=== PATIENT | female | born 2005 | race African-American/Black ===

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

== ENCOUNTER 2023-04-09 08:18 | Emergency (ER) | payer OTHER | END 2023-04-09 09:38 | disposition home or self-care (01) | LOC: CSHERS 08:18 | DX: H66.91 Otitis media, unspecified, right ear (principal); G40.909 Epilepsy, unspecified, not intractable, without status epilepticus; Z79.899 Other long term (current) drug therapy | CPT/HCPCS: 99283 ==

== ENCOUNTER 2024-11-03 09:59 | Emergency (ER) | payer OTHER ==
[2024-11-03 11:53] LABS: #Basophils Less than 0.03 10x3/uL (0.0-0.2); #Eosinophils Less than 0.03 10x3/uL (0.0-0.5); #Monocytes 0.57 10x3/uL (0.0-1.1); #Neutrophils 1.61 10x3/uL (1.5-8.4); %Basophils 0.5 % (0.0-2.0); %Eosinophils 0.3 % (0.0-6.0); %Lymphocytes 39.5 % (18.0-47.0); %Monocytes 15.5 % (0.0-10.0); %Neutrophils 43.9 % (40.0-75.0); Hematocrit 40.7 % (34.9-44.5); Hemoglobin 13.1 g/dL (12.0-15.5); Mean Corpuscular Hemoglobin 27.6 pg (27.0-33.0); Mean Corpuscular Volume 85.7 fL (81.6-98.3); Platelet Count 227 10x3/uL (150-450); Red Blood Cell (RBC) Count 4.75 10x6/uL (3.90-5.03); White Blood Cell (WBC) Count 3.67 10x3/uL (3.5-10.5)
[2024-11-03 12:08] LABS: ALT (SGPT) 18 U/L (Less than 34); AST (SGOT) 25 U/L (11-34); Albumin 4.6 g/dL (3.1-4.5); Alkaline Phosphatase 55 U/L (40-110); Anion Gap 13 mmol/L (10-20); BUN (Urea Nitrogen) 15 mg/dL (7.0-18.7); Bilirubin, Total 0.4 mg/dL (0.3-1.2); Calc. Creatinine Clearance 0 mL/min (70-130); Calcium 10.1 mg/dL (7.8-10.44); Carbon Dioxide 23 mmol/L (22-29); Chloride 105 mmol/L (98-107); Globulin 3.2 g/dL (2.4-3.5); Glucose 83 mg/dL (70-105); Lipase 13 U/L (8-78); Potassium 3.9 mmol/L (3.5-5.1); Sodium 137 mmol/L (136-145)
[2024-11-03 12:12] LABS: Troponin I Less than 0.010 ng/mL (< 0.028)
== END 2024-11-03 13:12 | disposition home or self-care (01) ==
LOC: CSHERS 09:59
DX: R10.84 Generalized abdominal pain (principal); K59.00 Constipation, unspecified; R07.9 Chest pain, unspecified
CPT/HCPCS: 71045; 74018; 80053; 83605; 83690; 84484; 85025; 93005